=== PATIENT | female | born 1955 | race Caucasian/White ===

== ENCOUNTER 2025-06-11 18:43 | Inpatient (IN) | payer MEDICARE, OTHER ==
[~2025-06-11] VITALS: Ht 160 cm; Wt 56.4 kg
[2025-06-11] MEDS ORDERED: DERMACINRX LID1 EACH TD (19:08)
[2025-06-11] MEDS ORDERED: UPTRAVI PO (19:09)
[2025-06-11] MEDS ORDERED: ESOMEPRAZOLE MA40 MG PO (19:10)
[2025-06-11] MEDS ORDERED: JANTOVEN5 MG PO (19:10)
[2025-06-11] MEDS ORDERED: ROSUVASTATIN CA20 MG PO (19:10)
[2025-06-11] MEDS ORDERED: CIALIS20 MG PO (19:11)
[2025-06-11] MEDS ORDERED: LETAIRIS10 MG PO (19:11)
[2025-06-11] MEDS ORDERED: LEVOTHYROXINE175 MC1 PO (19:11)
[2025-06-11] MEDS ORDERED: VITAMIN E450 M1 PO (19:12)
[2025-06-11] MEDS ORDERED: JARDIANCE10 MG PO (19:13)
[2025-06-11] MEDS ORDERED: CALCIUM + D3 E1 EACH PO (19:13)
[2025-06-11] MEDS ORDERED: FIBER PO (19:14)
[2025-06-11] MEDS ORDERED: ARANESP200 MCG/1 INJ (19:16)
[2025-06-11 20:11] LABS: BASOPHILS 0.4 % (0.1-1.2); EOSINOPHILS 1.0 % (0.7-5.8); LYMPHOCYTES 15.3 % (19.3-51.7); MCH 28.3 PG (25.6-32.2); MCHC 31.0 g/dL (32.2-35.5); MCV 91.3 fL (79.4-94.8); MONOCYTES 9.3 % (4.7-12.5); NEUTROPHILS 73.6 % (34.0-71.1); RBC 3.22 M/uL (3.93-5.22)
[2025-06-11 20:30] LABS: ALT (SGPT) 21.0 U/L (14-59); AST (SGOT) 25.0 U/L (15-37); GLOMERULAR FILTRATION RATE,EST 50.0 mL/min (>60); PROTEIN, TOTAL 6.5 g/dL (6.4-8.2); UREA NITROGEN 33.0 mg/dL (7-18)
[2025-06-11 20:33] LABS: INR 2.02 (0.80-1.30); PROTIME 22.1 Sec (11.2-14.2)
[2025-06-11 20:44] LABS: ABO B; RH POSITIVE
[2025-06-11 20:45] LABS: ANTIBODY SCREEN NEGATIVE
[2025-06-11] MEDS ORDERED: MORPHINE SULFATE 4 MG/ML VIAL IV ONE (21:15)
[2025-06-11 21:29] LABS: BASOPHILS 0.4 % (0.1-1.2); EOSINOPHILS 0.8 % (0.7-5.8); LYMPHOCYTES 17.3 % (19.3-51.7); MCH 28.7 PG (25.6-32.2); MCHC 31.6 g/dL (32.2-35.5); MCV 91.0 fL (79.4-94.8); MONOCYTES 8.5 % (4.7-12.5); NEUTROPHILS 72.8 % (34.0-71.1); RBC 2.89 M/uL (3.93-5.22)
[2025-06-11] MEDS ORDERED: SODIUM CHLORIDE 0.9% 500 ML IV PRN (21:30)
[2025-06-11] MEDS ORDERED: PHYTONADIONE 5 MG in DEXTROSE 5% 50 ML IV ONE (21:45)
[2025-06-11] MEDS ORDERED: SODIUM CHLORIDE 0.9% 50 ML IV PRN (21:45)
[2025-06-11] MEDS ORDERED: HUMAN PROTHROMBIN COMPLX(PCC) 500 UNIT/20 ML VIAL IV ONE (21:45)
[2025-06-11] MEDS ORDERED: TRANEXAMIC ACID IN NACL,ISO-OS 1,000 MG/100 ML PIGGYBACK IV ONE (22:15)
[2025-06-11] MEDS ORDERED: DEXTROSE 5% - LACTATED RINGERS 1,000 ML IV SCH (22:45)
[2025-06-11] MEDS ORDERED: Insulin Regular, Human 100 UNIT/ML ML SUB-Q PRN (22:45)
[2025-06-11] MEDS ORDERED: HYDROmorphone HCL 1 MG/ML SYR IV PRN (22:45)
[2025-06-11] MEDS ORDERED: ACETAMINOPHEN 325 MG TAB PO PRN (22:45)
--- NOTE | 2025-06-11 23:00 | NUR ---
PATIENT ARRIVED TO [facility] WITH WHEEL FILLER VIA STRETCHER. PATIENT AMBULATED TO BATHROOM WITH ON PERSON LINE MANAGEMENT. 500ML OUT OF YELLOW URINE. REPORT RECEIVED VIA PHONE. PATIENT ALERT AND OREIENTED TIMES FOUR. PLEASANT AND GOOD HISTORIAN. ADMISSION COMPLETE. PERSONAL BELONGINGS ACCOUNTED FOR, CREDIT CARDS, WALLET, BONILLA AND HOME MEDICATIONS IN THE LOCK BOX. D5LR INFUSING WNL PER MAR. HR 60-70S WITH SOFT BLOOD PRESSURES. PATIENT REPORTED CRAMPING ABDOMINAL PAIN, BUT WAS REQUESTING NO PAIN MEDICATIONS AT THIS TIME. REPORTED TINGLING IN BILATERAL BOTTOMS OF FEET, BILATERAL ANKLES SWOLLEN/ PAINFUL. PT'S GLASSES AND PHONE AT BEDSIDE. PATIENT PUT ON 1L NC DUE TO DESATURATION WHILE SLEEPING. PT ENDORSES HAVING SLEEP APNEA, BUT NOT BEING COMPLIANT WITH CPAP AT HOME. PATIENT ENDORSED MARIJAUNA USE 2X WEEK, HAVING BASELINE SOFT B/P AND HAVING A MURMUR.
[2025-06-11 23:25] VITALS: BP 111/68
[2025-06-11 23:31] LABS: INR 1.23 (0.80-1.30); PROTIME 14.7 Sec (11.2-14.2)
[2025-06-12] VITALS (26 sets, daily range): BP systolic 81–136; BP diastolic 41–84
--- NOTE | 2025-06-12 04:13 | NUR ---
CALLED DR. BONE TO UPDATE HIM ON THE PATIENT'S SOFT BLOOD PRESSURES. DR. BONE WANTED TO AM LABS DRAWN NOW AND COMMUNICATED THAT HE WOULD BE IN SHORTLY TO GET THE PATIENT'S CONSENT TO RECEIVE BLOOD PRODUCTS.
[2025-06-12 04:14] LABS: BASOPHILS 0.3 % (0.1-1.2); EOSINOPHILS 2.1 % (0.7-5.8); LYMPHOCYTES 23.5 % (19.3-51.7); MCH 28.8 PG (25.6-32.2); MCHC 30.9 g/dL (32.2-35.5); MCV 93.5 fL (79.4-94.8); MONOCYTES 10.0 % (4.7-12.5); NEUTROPHILS 63.8 % (34.0-71.1); RBC 2.60 M/uL (3.93-5.22)
[2025-06-12] MEDS ORDERED: PANTOPRAZOLE SODIUM 40 MG/10 ML VIAL IV SCH (04:15)
[2025-06-12 04:31] LABS: ALT (SGPT) 18.0 U/L (14-59); AST (SGOT) 22.0 U/L (15-37); GLOMERULAR FILTRATION RATE,EST 54.0 mL/min (>60); PROTEIN, TOTAL 5.3 g/dL (6.4-8.2); UREA NITROGEN 29.0 mg/dL (7-18)
[2025-06-12 04:41] LABS: ABO B; RH POSITIVE
[2025-06-12 04:41] LABS: IS CROSSMATCH COMPATIBLE
--- NOTE | 2025-06-12 06:03 | NUR ---
PRBCS INFUSING AT THIS TIME WNL. PATIENT REPORTED 7/10 HEADACHE PRIOR TO INFUSING BLOOD PRODUCTS. DESCRIBED HEADACHE "POUNDING". PO TYLENOL GIVEN PER MAR. PATIENT SHOWING NO S/S OF A TRANSFUSION REACTION. CALL LIGHT AND PERSONAL BELONGINGS ARE WITHIN REACH.
--- NOTE | 2025-06-12 07:25 | NUR ---
report from sean rn, pt in bed resting with eyes closed, 0745 rt diana and this rn in to room pt eyes closed, hr 63, resp 14, o2 1L nc sats 95% next cbc at 0830 am. call light in reach. white board updated.
[2025-06-12] MEDS ORDERED: IBLOOD GLUCOSE TEST STRIP 1 EA TEST VI SCH (08:00)
[2025-06-12 08:42] LABS: BASOPHILS 0.6 % (0.1-1.2); EOSINOPHILS 2.0 % (0.7-5.8); LYMPHOCYTES 18.6 % (19.3-51.7); MCH 28.8 PG (25.6-32.2); MCHC 31.5 g/dL (32.2-35.5); MCV 91.4 fL (79.4-94.8); MONOCYTES 9.5 % (4.7-12.5); NEUTROPHILS 69.0 % (34.0-71.1); RBC 3.02 M/uL (3.93-5.22)
--- NOTE | 2025-06-12 08:42 | NUR ---
this rn in to draw labs from pt right arm iv. 10 ml sent to lab. update from charge gang weigher, no changes - dr updated via message and idt am meeting from charge. pt denies needs, npo, iv d5lr @125 fusing.
[2025-06-12 08:52] LABS: INR 1.18 (0.80-1.30); PROTIME 14.3 Sec (11.2-14.2)
--- NOTE | 2025-06-12 09:05 | NUR ---
UPDATED DR WITH BEND RECORDS, THIS RN IN ROOM WITH DR AND PT.
[2025-06-12] MEDS ORDERED: ACETAMINOPHEN-1 EAC1 PO (11:16)
--- NOTE | 2025-06-12 11:17 | NUR ---
Spoke with [place]. She lives in [place] in a home with 3 steps. She denies using any DME. She does have a ramp as they are preplanning for aging. 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 She is in our area at [facility]. She is now planning on going home on discharge. Her daughter will be here tonight and drive her home on dc so spouse can stay at [facility]. Pt denie having any needs to go home. She denies any financial difficulties or safety concerns. Her gastrointerologist is Dr. Sawyer in [place] and she will call them today and schedule a fu appt. She denies any other needs. Her VINEET is Ever and is at [facility]. His Sat phone number is [phone]. Pt states she is taking Warfarin as she had a PE.
[2025-06-12] MEDS ORDERED: AMBRISENTAN10 MG PO (11:19)
[2025-06-12] MEDS ORDERED: LEVOTHYROXINE200 MCG PO (11:22)
--- NOTE | 2025-06-12 11:22 | NUR ---
pt visiting with dc data recovery planner. call light in reach - resting in bed.
--- NOTE | 2025-06-12 11:40 | NUR ---
PT USED CALL LIGHT, REQUESTING TO USE BATHROOM. PT SBA TO BATHROOM AND BACK TO BED AFTER VOID. PT DENIES NEEDS AT THIS TIME, CALL LIGHT WITHIN REACH.
[2025-06-12] MEDS ORDERED: PHARMACY RENAL DOSE ADJUSTMENT 1 DOSE MISC PO SCH (12:00)
[2025-06-12] MEDS ORDERED: DIPHENOXYLATE-1 EACH PO (14:07)
--- NOTE | 2025-06-12 14:08 | NUR ---
MED REC COMPLETE
--- NOTE | 2025-06-12 14:09 | NUR ---
confirmed with pt pcp and updated her face sheet. called gastro dr lafleur to attempt to make f/u appt. in [place].
--- NOTE | 2025-06-12 14:29 | NUR ---
PT VOID IN BR X1 NO BM NO BLOOD, DENIES NEEDS - VISITING WITH FRIEND. F/U APPT ALREADY MADE FOR GI DR MILLER - 06/23 9 AM. ADDED TO PT DC PAPER.
--- NOTE | 2025-06-12 14:50 | NUR ---
DR CASTRO HERE AND UPDATED WITH PT RECORDS AND REPORT. PT IN BED WITH FRIEND IN ROOM. DR CASTRO HAD NO NEW ORDERS. DR. BONE AWARE OF VISIT AND ORDERED A CBC, THIS RN EMY BLOOD FROM R ARM IV SITE. SENT TO LAB. PT ON PHONE WITH HER .
[2025-06-12 14:54] LABS: BASOPHILS 0.3 % (0.1-1.2); EOSINOPHILS 2.4 % (0.7-5.8); LYMPHOCYTES 20.2 % (19.3-51.7); MCH 28.5 PG (25.6-32.2); MCHC 31.3 g/dL (32.2-35.5); MCV 90.9 fL (79.4-94.8); MONOCYTES 10.0 % (4.7-12.5); NEUTROPHILS 66.6 % (34.0-71.1); RBC 3.09 M/uL (3.93-5.22)
[2025-06-12] MEDS ORDERED: DEXTROSE 5% - LACTATED RINGERS 1,000 ML IV SCH (15:00)
--- NOTE | 2025-06-12 15:00 | NUR ---
ADVANCE DIET TO CLEAR, PT HAPPY. DR BONE AT BEDSIDE TO DISCUSS PLAN OF CARE. REPEAT LABS ARE STABLE FROM THIS AFTERNOON. REPEAT LABS IN AM, RESTART ANTICOAGULATION IN NEAR FUTURE.
[2025-06-12] MEDS ORDERED: POTASSIUM CHLORIDE 10 MEQ TABCR PO ONE (15:30)
--- NOTE | 2025-06-12 16:36 | NUR ---
UR CLINICAL REVIEW: 2 MN FOR [facility] [employer] [place] MEETS INPT FOR GI BLEED WITH NEED FOR TRANSFUSION, MONITORING AND SERIAL LABS MEDICARE INPT 06/12/25 @ 0945 ORDER MATCHES REG NO AUTH REQUIRED PER MEDICARE GUIDELINES DISCHARGE TO HOME WITH FAMILY WHEN STABLE.
--- NOTE | 2025-06-12 17:30 | NUR ---
pt tollerated cl liq diet, amb to br to void 700 ml clear yellow urine, no bm no blood. pt steady on feet. back to bed - scds on. pt was given care items in br. denies needs. call light in reach.
--- NOTE | 2025-06-12 20:32 | NUR ---
PATIENT UP TO THE BATHROOM. LINE ASSIST ONLY. PATIENT STEADY ON HER FEET. PATIENT REPORTS PAIN IN HER ABD. DENIED NAUSEA. DESCRIBES IT CRAMPING. DISCUSSED WITH VIA PHONE. PATIENT RETURNED TO BED. SCHEDULED MEDS PROVIDED. IV FLUIDS CONTINUED PER ORDER. PATIENT'S VS STABLE. TOLERATING ROOM AIR. IV SITES WNL X2. SCDs IN PLACE. PATIENT IS AAOX4. ABD IS SOFT; BOWEL SOUNDS ACTIVE.
[2025-06-12] MEDS ORDERED: MORPHINE SULFATE 4 MG/ML VIAL IV PRN (20:45)
--- NOTE | 2025-06-12 20:48 | NUR ---
PATIENT PROVIDED PRN PAIN MEDS FOR ABD PAIN WITH CRAMPING 7/10 AND 5/10 BACK PAIN WHICH IS CHRONIC. PATIENT ASSISTED TO POSITION FOR COMFORT. CALL LIGHT IN REACH. 1L NC PLACED DUE TO PATIENT'S HISTORY OF SLEEP APNEA AND PREVIOUSLY NEEDING O2 WHILE SLEEPING.
--- NOTE | 2025-06-12 22:30 | NUR ---
PATIENT REQUEST LIGHTS BE DIMMED MORE IN HER ROOM. ALL EFFORT MADE TO REDUCE LIGHT. OFFERED EYE MASK; PATIENT DECLINED. REPORTED IMPROVED PAIN CONTROL AND DENIED ANY FURTHER NEEDS OR CONCERNS. CALL LIGHT IN REACH.
[2025-06-13] VITALS: BP 122/66
--- NOTE | 2025-06-13 00:38 | NUR ---
PATIENT APPEARS TO BE SLEEPING SOUNDLY. VS STABLE. IV FLUIDS PER ORDER; SITE WNL. CALL LIGHT IN REACH.
--- NOTE | 2025-06-13 00:46 | NUR ---
PATIENTIV FLUIDS ALARMING. PATIENT APPEARED RESTFUL WHEN RN IN ROOM. REQUEST TO GET UP TO THE BATHROOM. PATIENT AMBULATED WITHOUT ASSISTANCE INTO BATHROOM TO VOID. REPORTS SHE HAS BEEN SLEEPING WELL AND DENIED GI UPSET OR PAIN. IV FLUIDS CONTINUED PER ORDER; IV SITE WNL. PATIENT VS REMAIN STABLE. SCDs IN USE. CALL LIGHT IN REACH. 1L NC WHILE SLEEPING.
--- NOTE | 2025-06-13 01:30 | NUR ---
CARE OF PT ASSUMED, REPORT RECEIVED FROM MADELIN CHEUNG. PT IS RESTING WITH EYES CLOSED, RESP EVEN AND UNLABORED.
[2025-06-13 02:00] VITALS: BP 108/57
--- NOTE | 2025-06-13 03:30 | NUR ---
PT CONT TO REST WITH EYES CLOSED, RESP EVEN AND UNLABORED.
[2025-06-13 04:00] VITALS: BP 108/55
--- NOTE | 2025-06-13 05:05 | NUR ---
LAB IN TO DRAW PT. SHE THEN GETS UP TO BATHROOM TO VOID THEN BACK TO BED. COFFEE GIVEN PER REQUEST.
[2025-06-13 05:29] LABS: BASOPHILS 0.5 % (0.1-1.2); EOSINOPHILS 3.3 % (0.7-5.8); LYMPHOCYTES 20.7 % (19.3-51.7); MCH 28.7 PG (25.6-32.2); MCHC 31.3 g/dL (32.2-35.5); MCV 91.7 fL (79.4-94.8); MONOCYTES 8.9 % (4.7-12.5); NEUTROPHILS 66.3 % (34.0-71.1); RBC 3.14 M/uL (3.93-5.22)
[2025-06-13 05:45] LABS: ALT (SGPT) 20.0 U/L (14-59); AST (SGOT) 26.0 U/L (15-37); GLOMERULAR FILTRATION RATE,EST 79.0 mL/min (>60); PHOSPHORUS, INORGANIC 3.7 mg/dL (2.5-4.9); PROTEIN, TOTAL 5.2 g/dL (6.4-8.2); UREA NITROGEN 14.0 mg/dL (7-18)
[2025-06-13 06:00] VITALS: BP 128/76
[2025-06-13] MEDS ORDERED: LEVOTHYROXINE SODIUM 100 MCG TAB PO SCH (06:00)
[2025-06-13 08:00] VITALS: BP 133/76
[2025-06-13] MEDS ORDERED: EMPAGLIFLOZIN 10 MG TAB PO SCH (09:00)
[2025-06-13] MEDS ORDERED: MAGNESIUM CHLORIDE 64 MG TABCR PO ONE (09:00)
--- NOTE | 2025-06-13 09:36 | NUR ---
DR. BONE IN TO SEE PATIENT AROUND [address] CASTRO IN ROOM AT THIS TIME SEEING PATIENT. PATIENT EATING A REGULAR DIET AND TOLERATING WELL. PT STILL HASN'T HAD A BM SINCE ADMISSION. BLOOD COUNTS ARE STABLE. LIKELY D/C HOME TODAY TO FOLLOW UP WITH HER GI MDs IN [place].
[2025-06-13] MEDS ORDERED: ENOXAPARIN SODIUM 60 MG/0.6 ML SYR SUB-Q SCH (09:55)
--- NOTE | 2025-06-13 09:57 | NUR ---
DR. BONE BACK IN TO SEE PATIENT AND DISCUSSES HER LEAVING. PT TO RECEIVE DOSE OF LOVENOX HERE PRIOR TO DISCHARGING, AND THEN WILL CONTINUE HER LOVENOX TO BRIDGE TO HER COUMADIN. PT EXPRESSES UNDERSTANDING OF PLAN. PT HAS CALLED HER DAUGHTER FROM [facility] TO COME PICK HER UP AND BRING HER BACK HOME.
--- NOTE | 2025-06-13 09:58 | NUR ---
PATIENT OFFERED A SHOWER THIS AM BUT DECLINES AND STATES SHE WOULD RATHER SHOWER AT HOME.
[2025-06-13] MEDS ORDERED: ENOXAPARIN60 MG/0.6 SUB-Q (10:05)
== END 2025-06-13 11:40 | disposition home or self-care (01) | DRG 379 ==
LOC: ED 18:43 → CCU 22:56
PROVIDERS: Family Medicine; ADMIT Family Medicine; ATTEND Family Medicine
PROC: 30233N1 Transfusion of Nonautologous Red Blood Cells into Peripheral Vein, Percutaneous Approach (ICD-10-PCS; principal; 2025-06-11)
DX: K92.2 Gastrointestinal hemorrhage, unspecified (principal); I27.20 Pulmonary hypertension, unspecified; I12.9 Hypertensive chronic kidney disease with stage 1 through stage 4 chronic kidney disease, or unspecified chronic kidney disease; N18.30 Chronic kidney disease, stage 3 unspecified; M06.9 Rheumatoid arthritis, unspecified; F12.90 Cannabis use, unspecified, uncomplicated; E03.9 Hypothyroidism, unspecified; E83.42 Hypomagnesemia; I95.9 Hypotension, unspecified; E87.6 Hypokalemia; Z99.89 Dependence on other enabling machines and devices; Z98.890 Other specified postprocedural states; Z90.710 Acquired absence of both cervix and uterus; Z88.5 Allergy status to narcotic agent; Z95.2 Presence of prosthetic heart valve; Z88.8 Allergy status to other drugs, medicaments and biological substances; Z91.018 Allergy to other foods; Z79.899 Other long term (current) drug therapy; Z79.890 Hormone replacement therapy; Z79.01 Long term (current) use of anticoagulants; Z87.19 Personal history of other diseases of the digestive system; Z87.891 Personal history of nicotine dependence
CPT/HCPCS: 36415; 36592; 74177; 80053; 83735; 84100; 85025; 85610; 85730; 86850; 86900; 86901; 86922; 94799; 96365; 96375; 99285-25; A9270; J1650; J2270; J2405; J2470; J3430; J7040; J7121; J7168; P9016; Q9967